=== PATIENT | female | born 1980 | race African-American/Black ===

== ENCOUNTER 2023-09-13 04:33 | Inpatient (IN) | payer OTHER ==
[2023-09-12 15:37] VITALS: BMI 27.5
[2023-09-13] MEDS ORDERED: ACETAMINOPHEN 500 MG TABLET (FP) PO ONE (06:40)
[2023-09-13] MEDS ORDERED: CEFAZOLIN SODIUM 2 GM in DEXTROSE 5%-WATER 100 ML IVPB ONE (06:40)
[2023-09-13] MEDS ORDERED: ceFAZolin SODIUM 1 GM VIAL ONE ×2 (06:42→08:40)
[2023-09-13] MEDS ORDERED: PROPOFOL 40 ML ONE (07:47)
[2023-09-13] MEDS ORDERED: MIDAZOLAM HCL 2 MG/2 ML SINGLE DOSE VIAL ONE (07:48)
[2023-09-13] MEDS ORDERED: SUCCINYLCHOLINE CHLORIDE 200 MG/10 ML SYRINGE ONE (07:48)
[2023-09-13] MEDS ORDERED: BUPIVACAINE HCL/PF 0.25% (2.5MG/ML) 10 ML VIAL ONE (07:55)
[2023-09-13] MEDS ORDERED: BUPIVACAINE LIPOSOME/PF (EXPAREL) 266 MG/20 ML VIAL ONE (07:55)
[2023-09-13] MEDS ORDERED: SUGAMMADEX SODIUM 200 MG/2 ML VIAL ONE (08:31)
[2023-09-13] MEDS ORDERED: ROCURONIUM BROMIDE 50 MG/5 ML SYRINGE ONE ×2 (08:31→08:40)
[2023-09-13] MEDS ORDERED: DEXAMETHASONE SOD PHOSPHATE 4 MG/1 ML VIAL ONE (08:40)
[2023-09-13] MEDS ORDERED: ceFAZolin SODIUM 1 GM VIAL IVPB ONE (08:41)
[2023-09-13] MEDS ORDERED: KETAMINE HCL 200 MG/20 ML VIAL ONE (08:43)
[2023-09-13] MEDS ORDERED: GLYCOPYRROLATE 0.2 MG/1 ML VIAL ONE (08:43)
[2023-09-13] MEDS ORDERED: KETOROLAC TROMETHAMINE 30 MG/1 ML VIAL ONE (08:47)
[2023-09-13] MEDS ORDERED: PROPOFOL 20 ML ONE (10:19)
[2023-09-13] MEDS ORDERED: SENNOSIDES/DOCUSATE COMBO (SENNA PLUS) TABLET (UD) PO PRN (10:40)
[2023-09-13] MEDS ORDERED: IBUPROFEN 800 MG/8 ML IJ IVPB PRN (10:40)
[2023-09-13] MEDS ORDERED: ACETAMINOPHEN 1000 MG/100 ML BAG IVPB PRN (10:42)
[2023-09-13] MEDS ORDERED: ONDANSETRON 4 MG/2 ML VIAL IVPUSH PRN (10:45)
[2023-09-13] MEDS ORDERED: LACTATED RINGERS SOLUTION 1,000 ML/1,000 ML INFUS.BAG IV SCH (10:45)
[2023-09-13] MEDS ORDERED: LACTATED RINGERS SOLUTION 1,000 ML IV SCH (10:45)
[2023-09-13] MEDS ORDERED: ACETAMINOPHEN 1000 MG/100 ML BAG IVPB ONE (10:46)
[2023-09-13] MEDS ORDERED: HYDROmorphone *PCA* 10MG/50ML DISP.SYRIN PCA SCH (11:00)
[2023-09-13] MEDS ORDERED: CEFAZOLIN SODIUM 2 GM in DEXTROSE 5%-WATER - 100 ML IVPB SCH (18:00)
[2023-09-13] MEDS: CEFAZOLIN SODIUM 2 GM in DEXTROSE 5%-WATER 100 ML IVPB SCH (18:30)
[2023-09-13] MEDS ORDERED: oxyCODONE HCL 5 MG TABLET PO PRN ×2 (22:40)
[2023-09-14] MEDS: CEFAZOLIN SODIUM 2 GM in DEXTROSE 5%-WATER 100 ML IVPB SCH (02:45)
[2023-09-14 05:54] LABS: BASO % 0.3 % (0-2.0); EOS % 0.1 % (0-4.5); HEMATOCRIT 28.3 % (32.4-45.2); HEMOGLOBIN 9.3 GM/dL (10.7-15.3); LYMPH % 20.7 % (8-40); MCH 26.4 pg (25.7-33.7); MEAN PLT VOLUME 8.5 fl (7.5-11.1); MONO % 15.2 % (3.8-10.2); NEUT % 63.7 % (42.8-82.8); PLATELET COUNT 184 10^3/uL (134-434); RBC 3.53 M/mm3 (3.60-5.2); RDW 17.3 % (11.6-15.6); WHITE BLOOD COUNT 9.7 K/mm3 (4.0-10.0)
[2023-09-14] MEDS: amLODIPine BESYLATE 5 MG TABLET (FP) PO SCH ×2 (10:27→22:19)
[2023-09-14] MEDS ORDERED: BISACODYL 10 MG SUPP.RECT RC PRN (10:40)
[2023-09-14] MEDS: IBUPROFEN 600 MG TABLET (FP) PO PRN (14:57)
[2023-09-14] MEDS: SIMETHICONE 80 MG TAB.CHEW (FP) PO PRN ×2 (19:32→23:34)
[2023-09-14] MEDS ORDERED: ATORVASTATIN CA 20 MG TABLET (FP) PO SCH (22:00)
[2023-09-15] MEDS: ACETAMINOPHEN 325 MG TABLET (FP) PO PRN ×2 (01:25→08:38)
[2023-09-15 05:59] VITALS: RESP 16
[2023-09-15] MEDS: IBUPROFEN 600 MG TABLET (FP) PO PRN (06:24)
[2023-09-15] MEDS: SIMETHICONE 80 MG TAB.CHEW (FP) PO PRN (06:24)
[2023-09-15 09:00] VITALS: BP 130/87; PULSE 84; TEMP 99.1
== END 2023-09-15 10:50 | disposition home or self-care (01) | DRG 743 ==
LOC: J2C 04:33 → J3W 13:47
PROVIDERS: ADMIT Obstetrics & Gynecology; ATTEND Obstetrics & Gynecology
PROC: 0UT90ZL Resection of Uterus, Supracervical, Open Approach (ICD-10-PCS; principal; 2023-09-13 08:00)
DX: D25.9 Leiomyoma of uterus, unspecified (principal)
CPT/HCPCS: 36415; 81025; 85025; 86850; 86900; 86901; 94010; 94760